=== PATIENT | male | born 1970 | race Hispanic/Latino ===

== ENCOUNTER 2018-01-02 18:32 | Emergency (ER) | payer SELFPAY ==
[2018-01-02 18:45] LABS: Absolute Lymphocytes (CBC) 3.6 K/uL (0.7-4.9); Absolute Monocytes 1.3 K/uL (0.1-1.3); Absolute Neutrophil 6.6 K/uL (1.8-8.0); Basophils % 0.5 % (0-1.3); Eosinophils % 3.6 % (0-4.4); Hematocrit 48.6 % (39.6-49.0); MCV 84.7 fL (80-100); MPV 10.2 fL (7.6-11.3); RBC Red Blood Cell Count 5.73 M/uL (4.33-5.43)
[2018-01-02 19:07] LABS: Potassium 3.1 mEq/L (3.6-5.0)
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
[2018-01-02] MEDS ORDERED: LIDOCAINE VISCOUS 2% SOLN 15 ML UDC ONE (19:55)
[2018-01-02] MEDS ORDERED: MAGNE/ALUM HYDROXD 30 ML UCUP ONE (19:55)
[2018-01-02] MEDS ORDERED: KETOROLAC 30 MG/ML INJ ONE (20:34)
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
[2018-01-02 21:47] LABS: Urine Blood TRACE (NEG); Urine Glucose NEGATIVE (NEG); Urine Protein NEGATIVE (NEG); Urine Specific Gravity 1.015 (1.005-1.030); Urine pH 6.5 (5.0-7.0)
== END 2018-01-02 20:48 | disposition home or self-care (01) ==
LOC: ER 18:32
DX: S20.212A Contusion of left front wall of thorax, initial encounter (principal); S20.222A Contusion of left back wall of thorax, initial encounter; V47.5XXA Car driver injured in collision with fixed or stationary object in traffic accident, initial encounter
CPT/HCPCS: 36415; 70450; 71260; 72125; 74177; 80048; 81003; 85025; 96374; 99285; Q9967